=== PATIENT | male | born 1960 | race Caucasian/White ===

== ENCOUNTER 2023-11-10 10:00 | Day surgery (SDC) | payer OTHER ==
[2023-11-03 14:55] VITALS: BMI 28.7
[2023-11-10] MEDS ORDERED: ceFAZolin SODIUM 1 GM VIAL ONE (12:39)
[2023-11-10] MEDS ORDERED: TETRACAINE 0.5% OPHTH SOLN 2 ML BOTTLE ONE (12:39)
[2023-11-10] MEDS ORDERED: POVIDONE-IODINE 5% OPHTHALMIC PREP 30 ML SOLUTION ONE (12:39)
[2023-11-10] MEDS ORDERED: ERYTHROMYCIN 0.5% OPHTHALMIC OINTMENT 3.5 GM TUBE ONE (12:39)
[2023-11-10] MEDS ORDERED: LIDOCAINE 1%/EPI 1:100000 (20 ML MULTI DOSE VIAL) ONE (12:40)
[2023-11-10] MEDS ORDERED: BUPIVACAINE HCL/PF 0.5% (5MG/ML) 10 ML VIAL ONE (12:40)
[2023-11-10] MEDS ORDERED: MIDAZOLAM HCL 2 MG/2 ML SINGLE DOSE VIAL ONE (13:19)
[2023-11-10] MEDS ORDERED: PROPOFOL 40 ML ONE (13:19)
[2023-11-10] MEDS ORDERED: ONDANSETRON 4 MG/2 ML VIAL ONE (13:19)
[2023-11-10] MEDS ORDERED: ONDANSETRON 4 MG/2 ML VIAL IVPUSH PRN (14:35)
[2023-11-10] MEDS ORDERED: LACTATED RINGERS SOLUTION 1,000 ML IV SCH (14:45)
[2023-11-10] MEDS ORDERED: oxyCODONE HCL 5 MG TABLET PO PRN (15:13)
[2023-11-10 16:33] VITALS: TEMP 97
[2023-11-10 16:49] VITALS: BP 130/76; PULSE 56; RESP 18
== END 2023-11-10 16:49 | disposition home or self-care (01) ==
LOC: FASU 10:00
PROVIDERS: ATTEND Ophthalmology
PROC: 08URX7Z Supplement Left Lower Eyelid with Autologous Tissue Substitute, External Approach (ICD-10-PCS; 2023-11-10)
PROC: 0KX10ZZ Transfer Facial Muscle, Open Approach (ICD-10-PCS; 2023-11-10)
PROC: 08BR0ZZ Excision of Left Lower Eyelid, Open Approach (ICD-10-PCS; principal; 2023-11-10 14:08)
DX: C44.1092 Unspecified malignant neoplasm of skin of left lower eyelid, including canthus (principal)
CPT/HCPCS: 88305-TC; 94760